=== PATIENT | male | born 1980 | race Caucasian/White ===

== ENCOUNTER → 2020-07-20 | Outpatient (CLI) | payer BC | LOC: COL.RAD 07:14 | DX: K76.0 Fatty (change of) liver, not elsewhere classified (principal) ==

== ENCOUNTER 2020-09-10 11:31 | Emergency (ER) | payer OTHER ==
[~2020-09-10] VITALS: Ht 170.2 cm; Wt 120.5 kg
[2020-09-10 11:46] VITALS: TEMP 98.5
[2020-09-10 14:40] VITALS: BP 129/87; PULSE 85
== END 2020-09-10 14:44 | disposition home or self-care (01) ==
LOC: COL.ER 11:31
DX: S61.212A Laceration without foreign body of right middle finger without damage to nail, initial encounter (principal); Z23 Encounter for immunization; W26.8XXA Contact with other sharp object(s), not elsewhere classified, initial encounter; Y92.59 Other trade areas as the place of occurrence of the external cause; Y99.0 Civilian activity done for income or pay

== ENCOUNTER → 2020-09-21 | Outpatient (CLI) | payer BC ==
[2020-09-21 10:28] VITALS: BP 136/95; PULSE 91; TEMP 98.1
== END ==
LOC: COL.ER 10:18
DX: Z48.02 Encounter for removal of sutures (principal)